=== PATIENT | female | born 1950 | race African-American/Black ===

== ENCOUNTER 2018-09-11 05:29 | Observation (INO) | payer MEDICARE ==
--- NOTE | 2018-09-11 08:21 | CT ---
PRELIMINARY REPORT/[facility]/EMERGENTY AFTER-HOURS PROCEDURE Addendum created by Dheeraj Blas MD on 09/11/2018 6:43 AM Central Time ([place] & [place]) THIS REPORT CONTA INS FINDINGS THAT MAY BE CRITICAL TO PATIENT CARE. The findings were verbally communicated via teleph one conference with Quinten Treviño at 6:43 AM [employer] on 09/11/2018. The findings were acknowledged and und erstood. Initial Report created on 09/11/2018 6:41 AM Central Time ([place] & [place]) CT Angiography Head With Intravenous Contrast CLINICAL HISTORY: 68 years old, female; Signs and symptoms; Headache; Additional info: Additional history obtained from ems, tfr records reviewed. F68 presents to ed as tfr for R/O of CVA. Ems reports negative stroke adloph t but that pt is leaning more to the right so doctor wanted to rule out CVA. Pt reports waking from s leep 1am with SX, went to bed around 10 pm baseline. Pt had some dizziness before going to ed. Pt lin t to the ed initially for pain in right rastafari area that was very quick, comes and goes, and some congestion. Pt denies dizziness currently. Pt has no pain and no complaints currently. Hx- no previou s strokes. TECHNIQUE: Axial computed tomographic angiography images of the head with intravenous contrast using CT angiogra phy protocol. MIP reconstructed images were created and reviewed. Coronal and sagittal reformatted images were created and reviewed. CONTRAST: 100 mL of ISOVUE administered intravenously. COMPARISON: No relevant prior studies available. FINDINGS: Right internal carotid artery: Atherosclerotic calcifications in the cavernous and supraclinoid segme nts of the right internal carotid artery resulting in mild stenosis. No hemodynamically significant s tenosis. No aneurysm. Right anterior cerebral artery: No significant stenosis. No occlusion. No aneurysm. Right middle cerebral artery: No significant stenosis. No occlusion. No aneurysm. Right posterior cerebral artery: No significant stenosis. No occlusion. No aneurysm. Right vertebral artery: No hemodynamically significant stenosis. No aneurysm. Left internal carotid artery: Atherosclerotic calcifications in the cavernous and supraclinoid segmen ts of the left internal carotid artery resulting in mild stenosis. No hemodynamically significant dot nosis. No aneurysm. Left anterior cerebral artery: No significant stenosis. No occlusion. No aneurysm. Left middle cerebral artery: No significant stenosis. No occlusion. No aneurysm. Left posterior cerebral artery: No significant stenosis. No occlusion. No aneurysm. Left vertebral artery: No hemodynamically significant stenosis. No aneurysm. Basilar artery: No aneurysm. No significant stenosis. No occlusion. Brain: No intracranial hemorrhage. No evidence of acute infarction. No mass effect or midline shift. IMPRESSION: No acute intracranial abnormality. No major intracranial arterial hemodynamically significant stenosis or aneurysm. CT Angiography Neck With Intravenous Contrast TECHNIQUE: Axial computed tomographic angiography images of the neck with intravenous contrast using CT angiogra phy protocol. MIP reconstructed images were created and reviewed. Coronal and sagittal reformatted images were created and reviewed. CONTRAST: 100 mL of ISOVUE administered intravenously. 100 mL of ISOVUE administered intravenously. COMPARISON: No relevant prior studies available. FINDINGS: VASCULATURE: Right common carotid artery: No significant stenosis. No dissection or occlusion. Right internal carotid artery: Mild stenosis of the proximal right internal carotid artery. No hemody namically significant stenosis, dissection, or occlusion. Right external carotid artery: No occlusion. Right vertebral artery: No significant stenosis. No dissection or occlusion. Left common carotid artery: No significant stenosis. No dissection or occlusion. Left internal carotid artery: Mild stenosis of the proximal left internal carotid artery. No hemodyna mically significant stenosis, dissection, or occlusion. Left external carotid artery: No occlusion. Left vertebral artery: No significant stenosis. No dissection or occlusion. NECK: Bones/joints: Degenerative changes in the spine. No acute fracture. Normal alignment. Soft tissues: Normal as visualized. No mass. Lung apices: Paraseptal and centrilobular emphysematous changes. CAROTID STENOSIS REFERENCE USING NASCET CRITERIA: % ICA stenosis = (1 - narrowest ICA diameter/diameter of distal cervical ICA) x 100. Mild - <50% stenosis. Moderate - 50-69% stenosis. Severe - 70-94% stenosis. Near occlusion - 95-99% stenosis. Occluded - 100% stenosis. IMPRESSION: No dissection, hemodynamically significant stenosis, or occlusion in the carotid or vertebral arterie s. Nonacute/incidental findings above. Thank you for allowing us to participate in the care of your patient. Dictated and Authenticated by: Dheeraj Blas MD 09/11/2018 6:41 AM Central Time ([place] & [place]) FINAL REPORT EMERGENT AFTER HOURS CTA OF THE HEAD AND NECK WITH CONTRAST: Technique: 1. Multiple contiguous axial images were obtained in a CTA of the neck with contrast. 3D sagittal and coronal MIP reformats were performed. 2. Multiple contiguous axial images were obtained in a CTA of the head with contrast. 3D sagittal and coronal MIP reformats were performed. FINDINGS/IMPRESSION: 1. I agree with the findings and impression given in the preliminary report by [facility] physician. No sig nificant stenosis of the carotid arteries in the neck. 2. No significant vascular intracranial abnormality. POS: [facility]
--- NOTE | 2018-09-11 08:30 | RAD ---
SINGLE VIEW CHEST: Date: 09/11/18 COMPARISON: 11/24/13. HISTORY: Dizziness and headache. FINDINGS: Single view of the chest shows a normal sized cardiomediastinal silhouette. There is no evidence of c onsolidation, mass, or pleural effusion. The bones are unremarkable. IMPRESSION: No evidence of acute cardiopulmonary disease. POS: [facility]
[2018-09-11] MEDS ORDERED: Iopamidol 370 76% 100 ML VIAL ONE (10:03)
--- NOTE | 2018-09-11 12:19 | MRI ---
MRI BRAIN WITHOUT CONTRAST: History: TIA vs. CVA. Dizziness. Comparison: None. Technique: Brain MRI is performed without intravenous gadolinium administration. Multisequential, mul tiplanar imaging was performed. FINDINGS: No hemorrhage on the axial gradient echo sequence. Calvarium has a normal T1 marrow signal intensity. Midline brain parenchymal structures are unremarka ble. Central arterial flow voids are maintained. Absent restricted diffusion. T2 and FLAIR white matter hyperintensity is likely due to chronic small vessel ischemic change. Adequate aeration of the sinuses and mastoid air cells. IMPRESSION: 1. Absent restricted diffusion. No acute infarct. POS: [facility]
[2018-09-11] MEDS ORDERED: Ondansetron ODT 4 MG TAB SL PRN (13:13)
[2018-09-11] MEDS ORDERED: Acetaminophen 325 MG TAB PO PRN (13:13)
[2018-09-11] MEDS ORDERED: Ondansetron PF 4 MG/2 ML Vial IVP PRN (13:13)
[2018-09-11] MEDS ORDERED: hydrALAZINE 20 MG/ML VIAL SLOW IVP PRN (13:31)
[2018-09-11] MEDS ORDERED: Losartan 25 MG TAB PO SCH (14:00)
[2018-09-11 14:43] LABS: Cardiac Risk 3.7 (Less than 4.5)
[2018-09-11 14:59] VITALS: BMI 40.5
[2018-09-11] MEDS: cefTRIAXone\\ROCEPHIN 1 GM in Sodium Chloride 0.9% 100 ML IVPB SCH (15:22)
--- NOTE | 2018-09-11 22:00 | HP ---
CODE STATUS: Full code. PRIMARY CARE PHYSICIAN: Dr. Maggie Godoy. CHIEF COMPLAINT: Headache and dizziness. HISTORY OF PRESENT ILLNESS: Ms. Hong is a pleasant 68-year-old female with past medical history of hypertension, who had presented to [facility] with a complaint of headache and weakness that started late last night. She states symptoms came on suddenly around 10:00 p.m., she had walked out to her kitchen to get a glass of water and she appeared quite dizzy and she became nauseous. She states symptoms lasted for several minutes, which were pretty concerning for the patient; therefore, she had asked her to drive her to the ER. Upon presentation, she had denied any further complaints, her symptoms of headache and dizziness had improved. Vital signs showed hypertension with a blood pressure of 172/92, which seemed to improve while in the ER to 146/87. She states that she takes losartan and nifedipine at home for her blood pressure. She had denied any further history of medical conditions at that time. She denies any heart disease, history of diabetes, history of stroke, migraines, or cancer. Her initial workup showed an elevated white count of 13.2 and CRP 1.71. Her urinalysis showed 3+ bacteria, small blood, and 4 to 6 wbc's with trace leukocyte esterase. She states she has a history of chronic UTIs, which she usually follows up with her primary care physician, Dr. Godoy, before. She reports an allergy to azithromycin and sulfa at this time. She also reports some frequency and urgency, however, denies any dysuria at this time. She denies fever or chills. She denies any chest pain, shortness of breath, or abdominal pain. She denies any nausea or vomiting at this time. CTA head and neck was unremarkable and showed no acute findings, chest x-ray showed no evidence of acute cardiopulmonary disease. MRI of brain was then ordered for further evaluation and showed absence of restrictive diffusion, showed no acute infarct, however, did show T2 and FLAIR white matter hyperintensity, which was likely secondary to chronic small-vessel ischemic changes. At this time, the patient will be admitted under observation for further workup of her symptoms. PAST MEDICAL HISTORY: Hypertension. FAMILY HISTORY: Positive for hypertension and diabetes. PAST SURGICAL HISTORY: Hysterectomy, left knee arthroscopic surgery, left Achilles tendon repair, and cholecystectomy. PSYCHIATRIC HISTORY: None. SOCIAL HISTORY: Denies any alcohol, tobacco, or drug use. KNOWN ALLERGIES: Azithromycin and sulfa drugs. CURRENT HOME MEDICATIONS: 1. Losartan 50 mg p.o. daily. 2. Nifedipine 30 mg p.o. b.i.d. REVIEW OF SYSTEMS: CONSTITUTIONAL: Denies any fever or chills. Denies any generalized weakness. Did report some dizziness and weakness along with headache last night, however, this has since resolved. CARDIOVASCULAR: Denies chest pain, palpitations, or murmur. RESPIRATORY: Denies any cough, shortness of breath, or sputum production. GASTROINTESTINAL: Denies any abdominal pain, nausea, vomiting, or diarrhea. GENITOURINARY: Does report some frequency and urgency, however, denies dysuria. Denies flank pain. NEUROLOGIC: Did report right-sided headache and dizziness last night, however, this has since resolved. Denies any lightheadedness or vision changes. Denies any change in gait. MUSCULOSKELETAL: Denies any weakness, swelling, or pain. PHYSICAL EXAMINATION: VITAL SIGNS: Blood pressure 146/87, pulse 70, respirations 18, temperature 98.5 , and O2 saturations 96% on room air. GENERAL: The patient is alert and oriented x3. No acute distress noted. HEAD: Atraumatic and normocephalic. EYES: Pupils round and reactive to light. Extraocular muscles intact. No nystagmus noted. ENT: Ear, nose, and throat clear. Tympanic membranes normal. Oropharynx without erythema. Uvula midline. Moist mucous membranes noted. NECK: Supple. Normal range of motion. Trachea midline. No tenderness. CARDIOVASCULAR: Positive S1 and S2. Regular rate and rhythm. No murmur. RESPIRATORY: Clear to auscultation bilaterally. No wheezes. No rhonchi. ABDOMEN: Obese, soft, and nontender. Bowel sounds present. Mild suprapubic tenderness noted. No CVA tenderness. No rebound. No guarding. MUSCULOSKELETAL: Moves all extremities equally. Strength 5+ bilaterally in upper and lower extremities. Pedal and radial pulses 2+ bilaterally. No edema noted. NEUROLOGIC: Cranial nerves 2 through 12 intact. No focal deficits noted. No motor deficits noted. Speech normal. SKIN: Warm, dry, and intact. No rash. No lesions noted. PSYCHIATRIC: Normal mood and affect. LABORATORY DATA: WBC 13.2, RBC 5.75, hemoglobin 14.6, platelets 316. Sodium 142, potassium 4.0, BUN 16, creatinine 0.87. Estimated GFR 78, glucose 112, alkaline phosphatase 123. C-reactive protein 1.71. Urinalysis showed small blood, trace leukocyte esterase, 4 to 6 wbc's, and 3+ bacteria. DIAGNOSTIC IMAGING: Chest x-ray showed no evidence of acute cardiopulmonary disease. CTA head and neck was unremarkable and showed no significant stenosis or occlusion, no acute findings noted. MRI of brain showed no acute infarct, however, did show T2 and FLAIR white matter hypointensity, likely secondary to chronic small-vessel ischemic changes. ASSESSMENT AND PLAN: 1. Urinary tract infection, check urine culture. Start the patient on IV ceftriaxone for antibiotic with further changes pending culture results. 2. Possible transient ischemic attack. So far, workup unremarkable, MRI of the brain showed chronic small-vessel ischemic changes, check echocardiogram for cardiogenic possibilities. Start the patient on aspirin 81 mg daily. Check lipid panel and likely start on statin therapy. 3. Hypertension. Continue the patient's home medications including losartan and nifedipine, monitor vital signs closely. Add IV hydralazine p.r.n. for systolic blood pressure greater than 170. 4. Gastrointestinal prophylaxis with Pepcid twice daily. 5. Deep venous thrombosis prophylaxis with Lovenox daily. Disposition and further medical management pending clinical findings and the patient's workup. Job ID: [id number] [facility]
[2018-09-11] MEDS: NIFEdipine XL 30 MG TAB PO SCH (22:21)
[2018-09-11] MEDS: Famotidine 20 MG TAB PO SCH (22:21)
[2018-09-12 06:04] LABS: #Eosinphils 0.1 thou/uL (0.0-0.7); #Lymphocytes 2.6 thou/uL (1.20-3.40); #Monocytes 0.7 thou/uL (0.11-0.59); #Neutrophils 5.4 thou/uL (1.40-6.50); %Basophils 0.4 % (0.0-1.0); %Eosinophils 1.6 % (0.0-10.0); %Lymphocytes 29.2 % (21.0-51.0); %Monocytes 7.4 % (0.0-10.0); %Neutrophils 61.4 % (42.0-75.0); Hemoglobin 13.5 g/dL (12.0-16.0); Mean Corpuscular HGB CONC 33.4 g/dL (32.0-36.0); Mean Corpuscular Hemoglobin 26.3 pg (27.0-31.0); Mean Corpuscular Volume 78.8 fL (78.0-98.0); Mean Platelet Volume 9.3 fL (7.4-10.4); Platelet Count 267 thou/uL (130-400); Red Blood Cell (RBC) Count 5.15 mill/uL (4.20-5.40); White Blood Cell (WBC) Count 8.8 thou/uL (4.8-10.8)
[2018-09-12 06:12] LABS: Anion Gap 12 mmol/L (10-20); BUN (Urea Nitrogen) 15 mg/dL (9.8-20.1); Calc. Creatinine Clearance 120 mL/min (70-130); Calcium 9.2 mg/dL (7.8-10.44); Carbon Dioxide 26 mmol/L (23-31); Chloride 106 mmol/L (98-107); Estimated GFR-MDRD 83; Glucose 88 mg/dL (80-115); Potassium 3.9 mmol/L (3.5-5.1); Sodium 140 mmol/L (136-145)
[2018-09-12] MEDS ORDERED: Aspirin 81 mg Enteric Coated Tablet PO SCH (09:00)
[2018-09-12] MEDS ORDERED: Enoxaparin Sodium 40 MG/0.4 ML SYRINGE SC SCH (09:00)
[2018-09-12] MEDS ORDERED: Losartan 25 MG TAB PO SCH (09:00)
[2018-09-12] MEDS: NIFEdipine XL 30 MG TAB PO SCH ×2 (09:49→18:12)
[2018-09-12] MEDS: Famotidine 20 MG TAB PO SCH (09:49)
--- NOTE | 2018-09-12 15:28 | PDOC.EVN ---
Event Note - Event Note Event Note: patient interviewed, brief exam. agree with Amy Huang management and plan
[2018-09-12] MEDS: cefTRIAXone\\ROCEPHIN 1 GM in Sodium Chloride 0.9% 100 ML IVPB SCH (15:44)
[2018-09-12 15:57] VITALS: BP 161/81; TEMP 98.2
[2018-09-12] MEDS ORDERED: Atorvastatin Calcium 20 MG TAB PO SCH (21:00)
== END 2018-09-12 18:19 | disposition home or self-care (01) ==
LOC: ERS 05:29 → ERHOLD 06:30 → 2SE 13:03
PROVIDERS: ADMIT Internal Medicine; ATTEND Internal Medicine
DX: N39.0 Urinary tract infection, site not specified (principal); I10 Essential (primary) hypertension; Z88.2 Allergy status to sulfonamides; Z88.1 Allergy status to other antibiotic agents; Z90.710 Acquired absence of both cervix and uterus; Z90.49 Acquired absence of other specified parts of digestive tract; Z79.899 Other long term (current) drug therapy; Z79.82 Long term (current) use of aspirin; Z98.890 Other specified postprocedural states
CPT/HCPCS: 70496; 70498; 70551; 71045; 80048; 80061; 85025; 87086; 93306; 96372; 96374; 96376; 99285; G0378 ×2; 36415; J0696; J1650; J7050

== ENCOUNTER 2018-12-10 14:18 | Outpatient (CLI) | payer MEDICARE ==
--- NOTE | 2018-12-10 17:38 | MRI ---
MRI LUMBAR SPINE NONCONTRAST: INDICATIONS: Low back pain, radiating to the left lower extremity. FINDINGS: There is no acute marrow edema or compression fracture. Multilevel endplate osteophytosis is present . There is prominent disk space narrowing at L4-L5. No significant subluxation. The conus medullar is demonstrates normal morphology, terminating at the L1 level. No significant pathology of the visu alized retroperitoneum. L5-S1: No significant central canal or neural foraminal stenosis. L4-L5: There is evidence of prior bilateral laminectomy. Broad-based disk osteophyte effaces the ve ntral aspect of the thecal sac. There is moderate bilateral neural foraminal stenosis, more prominen t on the left. There is potential for impingement of the traversing left L5 nerve root. Bilateral m oderate facet degenerative hypertrophy is present. L3-L4: Mild to moderate central canal stenosis is present on the basis of broad-based disk osteophyt e, redundancy of ligamentum flavum, and bilateral moderate facet hypertrophy. There is moderate righ t neural foraminal narrowing. Mild left neural foraminal narrowing is present. L2-L3: There is a broad-based disk osteophyte with mild effacement of the ventral thecal sac. Mild bilateral neural foraminal narrowing is present. L1-L2: Mild effacement of the ventral thecal sac due to broad-based disk osteophyte. There is mild crowding of the traversing left L2 nerve root. There is mild left neural foraminal narrowing. The r ight neural foramen is patent. 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 POS: [facility]
== END 2018-12-10 14:19 | disposition home or self-care (01) ==
LOC: SCSMRI 14:18
PROVIDERS: ATTEND Psychiatry & Neurology Neurology
DX: M54.30 Sciatica, unspecified side (principal); M47.816 Spondylosis without myelopathy or radiculopathy, lumbar region; Z98.890 Other specified postprocedural states
CPT/HCPCS: 72148

== ENCOUNTER 2019-03-28 15:30 | Outpatient (CLI) | payer MEDICARE ==
[2019-03-28 16:20] LABS: #Basophils 0.1 thou/uL (0.0-0.2); #Eosinphils 0.2 thou/uL (0.0-0.7); #Lymphocytes 3.1 thou/uL (1.20-3.40); #Monocytes 0.9 thou/uL (0.11-0.59); #Neutrophils 8.9 thou/uL (1.40-6.50); %Basophils 0.4 % (0.0-1.0); %Eosinophils 1.5 % (0.0-10.0); %Lymphocytes 23.5 % (21.0-51.0); %Monocytes 6.5 % (0.0-10.0); %Neutrophils 68.1 % (42.0-75.0); Hemoglobin 14.2 g/dL (12.0-16.0); Mean Corpuscular HGB CONC 33.1 g/dL (32.0-36.0); Mean Corpuscular Hemoglobin 26.3 pg (27.0-31.0); Mean Corpuscular Volume 79.5 fL (78.0-98.0); Mean Platelet Volume 9.3 fL (7.4-10.4); Platelet Count 269 thou/uL (130-400); RBC Distribution Width 13.9 % (11.5-14.5); Red Blood Cell (RBC) Count 5.38 mill/uL (4.20-5.40); White Blood Cell (WBC) Count 13.1 thou/uL (4.8-10.8)
[2019-03-28 16:25] LABS: INR-International Normal Ratio 0.9; PTT 32.3 SEC (22.9-36.1); Prothrombin Time 12.5 SEC (12.0-14.7)
[2019-03-28 16:40] LABS: ALT (SGPT) 14 U/L (8-55); AST (SGOT) 12 U/L (5-34); Albumin 4.4 g/dL (3.4-4.8); Alkaline Phosphatase 153 U/L (40-150); Anion Gap 15 mmol/L (10-20); BUN (Urea Nitrogen) 13 mg/dL (9.8-20.1); Bilirubin, Total 0.3 mg/dL (0.2-1.2); Calc. Creatinine Clearance 0 mL/min (70-130); Calcium 9.3 mg/dL (7.8-10.44); Carbon Dioxide 24 mmol/L (23-31); Chloride 106 mmol/L (98-107); Estimated GFR-MDRD 67; Globulin 2.8 g/dL (2.4-3.5); Glucose 77 mg/dL (80-115); Potassium 3.9 mmol/L (3.5-5.1); Protein, Total 7.2 g/dL (6.0-8.3); Sodium 141 mmol/L (136-145)
== END 2019-03-28 15:31 | disposition home or self-care (01) ==
LOC: LABBT 15:30
PROVIDERS: ATTEND Internal Medicine Cardiovascular Disease
DX: Z01.812 Encounter for preprocedural laboratory examination (principal); R94.30 Abnormal result of cardiovascular function study, unspecified
CPT/HCPCS: 80053; 85025; 85610; 85730

== ENCOUNTER 2019-04-02 06:12 | Day surgery (SDC) | payer MEDICARE ==
[2019-03-28 15:49] VITALS: BMI 41.1
[2019-04-02] MEDS ORDERED: Lidocaine 1% (PF) 30 ML VIAL ONE ×2 (06:25→06:45)
[2019-04-02] MEDS ORDERED: Heparin 0 ML ONE (06:25)
[2019-04-02] MEDS ORDERED: Iopamidol 370 76% 100 ML VIAL ONE (08:03)
[2019-04-02] MEDS ORDERED: Fentanyl 100 MCG/2 ML VIAL ONE (08:28)
[2019-04-02] MEDS ORDERED: Midazolam HCl 2 mg/2 ml Vial ONE (08:28)
[2019-04-02] MEDS ORDERED: Nitroglycerin 100MG/250ML BOT 0 ML ONE (08:45)
--- NOTE | 2019-04-02 14:31 | DIS ---
DATE OF ADMISSION: 04/02/2019 DATE OF DISCHARGE: 04/02/2019 HOSPITAL COURSE: Ms. Hong underwent cardiac catheterization today revealed the followin. Left main, some calcium, but no obstructive plaque. 2. LAD: Proximally calcium, but no obstructive plaque. 3. 30% LAD lesion after diagonal branch. 4. 50% very distal lesion in the LAD. 5. Circumflex 50% distal lesion. No proximal or mid occlusions. 6. Right coronary extremely tortuous, moderately calcified vessel with a 60% mid lesion. 7. Ejection fraction 60%. Recommended followin. Increase losartan to 50 mg twice a day. 2. Change from Lipitor to Crestor 20 mg a day to further lower cholesterol. 3. If she had intractable symptoms, consideration for intervention in the right coronary could be done, but there would be a moderate degree of risk with extremely tortuous vessel with some calcium. It should be treated medically first. Job ID: [id number]
== END 2019-04-02 14:40 | disposition home or self-care (01) ==
LOC: CCL 06:12
PROVIDERS: ATTEND Internal Medicine Cardiovascular Disease
PROC: 4A023N7 Measurement of Cardiac Sampling and Pressure, Left Heart, Percutaneous Approach (ICD-10-PCS; principal; 2019-04-02)
PROC: B2111ZZ Fluoroscopy of Multiple Coronary Arteries using Low Osmolar Contrast (ICD-10-PCS; 2019-04-02)
PROC: B2151ZZ Fluoroscopy of Left Heart using Low Osmolar Contrast (ICD-10-PCS; 2019-04-02)
DX: I25.10 Atherosclerotic heart disease of native coronary artery without angina pectoris (principal); I12.9 Hypertensive chronic kidney disease with stage 1 through stage 4 chronic kidney disease, or unspecified chronic kidney disease; N18.9 Chronic kidney disease, unspecified; F41.9 Anxiety disorder, unspecified; E78.5 Hyperlipidemia, unspecified; M19.90 Unspecified osteoarthritis, unspecified site; E66.01 Morbid (severe) obesity due to excess calories; F17.210 Nicotine dependence, cigarettes, uncomplicated; Z88.1 Allergy status to other antibiotic agents; Z88.2 Allergy status to sulfonamides; Z68.41 Body mass index [BMI] 40.0-44.9, adult; Z79.82 Long term (current) use of aspirin; Z79.899 Other long term (current) drug therapy
CPT/HCPCS: 76942; 93458; 99152; C1769; J1644; J2001; J2250; J3010; Q9967

== ENCOUNTER 2021-10-19 02:12 | Inpatient (IN) | payer MEDICARE ==
[2021-10-19] MEDS ORDERED: Acetaminophen 325 MG TAB PO PRN (03:17)
[2021-10-19] MEDS ORDERED: Ondansetron PF 4 MG/2 ML Vial IVP PRN (03:17)
[2021-10-19] MEDS ORDERED: Acetaminophen 650 MG Suppository PR PRN (03:17)
[2021-10-19] MEDS ORDERED: Ondansetron ODT 4 MG TAB PO PRN (03:17)
[2021-10-19] MEDS ORDERED: Pantoprazole 80 MG in Sodium Chloride 0.9% 100 ML IVPB SCH (03:30)
[2021-10-19 03:47] LABS: #Lymphocytes 1.6 thou/uL (1.20-3.40); #Monocytes 0.8 thou/uL (0.11-0.59); #Neutrophils 15.4 thou/uL (1.40-6.50); %Basophils 0.2 % (0.0-1.0); %Eosinophils 0.1 % (0.0-10.0); %Monocytes 4.5 % (0.0-10.0); %Neutrophils 86.2 % (42.0-75.0); Hemoglobin 9.2 g/dL (12.0-16.0); Mean Corpuscular HGB CONC 32.3 g/dL (32.0-36.0); Mean Corpuscular Hemoglobin 26.6 pg (27.0-31.0); Mean Corpuscular Volume 82.2 fL (78.0-98.0); Mean Platelet Volume 9.2 fL (7.4-10.4); Platelet Count 197 thou/uL (130-400); RBC Distribution Width 13.9 % (11.5-14.5); Red Blood Cell (RBC) Count 3.46 mill/uL (4.20-5.40); White Blood Cell (WBC) Count 17.8 thou/uL (4.8-10.8)
[2021-10-19 04:07] LABS: Anion Gap 15 mmol/L (10-20); BUN (Urea Nitrogen) 29 mg/dL (9.8-20.1); Calc. Creatinine Clearance 0 mL/min (70-130); Calcium 7.6 mg/dL (7.8-10.44); Carbon Dioxide 17 mmol/L (23-31); Chloride 114 mmol/L (98-107); Glucose 139 mg/dL (83-110); Potassium 4.1 mmol/L (3.5-5.1); Sodium 142 mmol/L (136-145)
[2021-10-19 04:58] VITALS: BMI 43.0
[2021-10-19] MEDS ORDERED: GoLYTELY 4,000 ml Bottle PO SCH ×2 (07:30→20:00)
[2021-10-19] MEDS: Sodium Chloride 0.9% 1,000 ML IV SCH ×2 (08:00→15:45)
[2021-10-19 08:02] LABS: Hemoglobin 8.6 g/dL (12.0-16.0)
[2021-10-19] MEDS ORDERED: Pantoprazole 80 MG, Admixture Fee 1 EACH in Sodium Chloride 0.9% 100 ML IVPB SCH (09:45)
[2021-10-19] MEDS ORDERED: Lidocaine 1% PF 5 ML VIAL ONE (13:13)
[2021-10-19] MEDS ORDERED: PROPOFOL 200 MG/20 ML VIAL ONE (13:13)
[2021-10-19 17:35] LABS: Hemoglobin 9.1 g/dL (12.0-16.0)
[2021-10-20 03:41] LABS: #Eosinphils 0.2 thou/uL (0.0-0.7); #Lymphocytes 3.1 thou/uL (1.20-3.40); #Monocytes 1.1 thou/uL (0.11-0.59); #Neutrophils 8.7 thou/uL (1.40-6.50); %Basophils 0.4 % (0.0-1.0); %Eosinophils 1.7 % (0.0-10.0); %Lymphocytes 23.5 % (21.0-51.0); %Monocytes 8.6 % (0.0-10.0); %Neutrophils 65.9 % (42.0-75.0); Hemoglobin 7.8 g/dL (12.0-16.0); Mean Corpuscular Hemoglobin 28.3 pg (27.0-31.0); Mean Corpuscular Volume 83.1 fL (78.0-98.0); Mean Platelet Volume 8.5 fL (7.4-10.4); Platelet Count 145 thou/uL (130-400); RBC Distribution Width 14.2 % (11.5-14.5); Red Blood Cell (RBC) Count 2.76 mill/uL (4.20-5.40); White Blood Cell (WBC) Count 13.2 thou/uL (4.8-10.8)
[2021-10-20 03:47] LABS: Anion Gap 11 mmol/L (10-20); BUN (Urea Nitrogen) 17 mg/dL (9.8-20.1); Calc. Creatinine Clearance 133 mL/min (70-130); Calcium 7.5 mg/dL (7.8-10.44); Carbon Dioxide 21 mmol/L (23-31); Chloride 114 mmol/L (98-107); Glucose 100 mg/dL (83-110); Potassium 3.4 mmol/L (3.5-5.1); Sodium 143 mmol/L (136-145)
[2021-10-20] MEDS: Sodium Chloride 0.9% 1,000 ML IV SCH ×2 (04:41→23:29)
[2021-10-20] MEDS ORDERED: PROPOFOL 200 MG/20 ML VIAL ONE (08:05)
[2021-10-21 05:54] LABS: #Eosinphils 0.2 thou/uL (0.0-0.7); #Lymphocytes 2.9 thou/uL (1.20-3.40); #Monocytes 0.8 thou/uL (0.11-0.59); #Neutrophils 8.6 thou/uL (1.40-6.50); %Basophils 0.2 % (0.0-1.0); %Eosinophils 1.4 % (0.0-10.0); %Lymphocytes 23.4 % (21.0-51.0); %Monocytes 6.4 % (0.0-10.0); %Neutrophils 68.6 % (42.0-75.0); Hemoglobin 7.6 g/dL (12.0-16.0); Mean Corpuscular HGB CONC 33.5 g/dL (32.0-36.0); Mean Corpuscular Hemoglobin 28.3 pg (27.0-31.0); Mean Corpuscular Volume 84.4 fL (78.0-98.0); Mean Platelet Volume 8.4 fL (7.4-10.4); Platelet Count 162 thou/uL (130-400); RBC Distribution Width 14.5 % (11.5-14.5); Red Blood Cell (RBC) Count 2.67 mill/uL (4.20-5.40); White Blood Cell (WBC) Count 12.6 thou/uL (4.8-10.8)
[2021-10-21 06:10] LABS: Anion Gap 12 mmol/L (10-20); BUN (Urea Nitrogen) 9 mg/dL (9.8-20.1); Calc. Creatinine Clearance 142 mL/min (70-130); Calcium 7.9 mg/dL (7.8-10.44); Carbon Dioxide 20 mmol/L (23-31); Chloride 113 mmol/L (98-107); Glucose 90 mg/dL (83-110); Potassium 3.4 mmol/L (3.5-5.1); Sodium 142 mmol/L (136-145)
[2021-10-21] MEDS ORDERED: Iron Polysaccharides Complex 150 MG CAP PO SCH (08:00)
[2021-10-21] MEDS ORDERED: Losartan 25 MG TAB PO SCH (09:00)
[2021-10-21] MEDS ORDERED: Ascorbic Acid 500 mg Chewable Tablet PO SCH (09:00)
[2021-10-21] MEDS: Sodium Chloride 0.9% 1,000 ML IV SCH (12:50)
[2021-10-21 17:01] VITALS: BP 160/94; TEMP 98
[2021-10-21] MEDS ORDERED: Rosuvastatin 20 MG TAB PO SCH (21:00)
== END 2021-10-21 17:37 | disposition home or self-care (01) | DRG 377 ==
LOC: ERS 02:12 → CCU 03:11 → IMCU/EMU 10-20 02:06 → T4-A 10-20 21:09
PROVIDERS: ADMIT Student in an Organized Health Care Education/Training Program; ATTEND Internal Medicine
PROC: 0DJ08ZZ Inspection of Upper Intestinal Tract, Via Natural or Artificial Opening Endoscopic (ICD-10-PCS; principal; 2021-10-19)
PROC: 0DJD8ZZ Inspection of Lower Intestinal Tract, Via Natural or Artificial Opening Endoscopic (ICD-10-PCS; 2021-10-19)
PROC: 30233N1 Transfusion of Nonautologous Red Blood Cells into Peripheral Vein, Percutaneous Approach (ICD-10-PCS; 2021-10-19)
PROC: 0DJD8ZZ Inspection of Lower Intestinal Tract, Via Natural or Artificial Opening Endoscopic (ICD-10-PCS; 2021-10-20)
DX: K57.31 Diverticulosis of large intestine without perforation or abscess with bleeding (principal); R57.8 Other shock; Z68.1 Body mass index [BMI] 19.9 or less, adult; N17.9 Acute kidney failure, unspecified; D62 Acute posthemorrhagic anemia; E78.5 Hyperlipidemia, unspecified; F17.210 Nicotine dependence, cigarettes, uncomplicated; Z20.822 Contact with and (suspected) exposure to COVID-19; E66.9 Obesity, unspecified; I10 Essential (primary) hypertension; Z86.73 Personal history of transient ischemic attack (TIA), and cerebral infarction without residual deficits; Z90.49 Acquired absence of other specified parts of digestive tract; Z90.710 Acquired absence of both cervix and uterus; Z88.1 Allergy status to other antibiotic agents; Z88.2 Allergy status to sulfonamides; Z88.8 Allergy status to other drugs, medicaments and biological substances; Z79.82 Long term (current) use of aspirin; Z79.899 Other long term (current) drug therapy
CPT/HCPCS: 36415; 80048; 85025; 86850; 86900; 86901; C9113; J2704; J3490; J7050; P9016

== ENCOUNTER 2022-03-10 13:12 | Outpatient (CLI) | payer MEDICARE ==
[2022-03-10 14:08] LABS: #Basophils 0.1 10x3/uL (0.0-0.2); #Eosinphils 0.1 10x3/uL (0.0-0.5); #Monocytes 0.9 10x3/uL (0.0-1.1); #Neutrophils 8.9 10x3/uL (1.5-8.4); %Basophils 0.4 % (0.0-2.0); %Eosinophils 0.6 % (0.0-6.0); %Lymphocytes 19.9 % (18.0-47.0); %Monocytes 7.5 % (0.0-10.0); %Neutrophils 71.3 % (40.0-75.0); Hemoglobin 13.7 g/dL (12.0-15.5); Mean Corpuscular HGB CONC 32.5 g/dL (32.0-36.0); Mean Corpuscular Hemoglobin 23.7 pg (27.0-33.0); Mean Platelet Volume 10.3 fl (7.4-10.4); Platelet Count 316 10x3/uL (150-450); RBC Distribution Width 18.1 % (11.5-14.5); Red Blood Cell (RBC) Count 5.78 10x6/uL (3.90-5.03); White Blood Cell (WBC) Count 12.4 10x3/uL (3.5-10.5)
[2022-03-10 14:12] LABS: INR-International Normal Ratio 0.9; Prothrombin Time 9.9 sec (9.5-12.1)
[2022-03-10 14:20] LABS: Anion Gap 16 mmol/L (10-20); BUN (Urea Nitrogen) 17 mg/dL (9.8-20.1); Calc. Creatinine Clearance 0 mL/min (70-130); Calcium 9.6 mg/dL (7.8-10.44); Carbon Dioxide 27 mmol/L (23-31); Chloride 102 mmol/L (98-107); Glucose 60 mg/dL (83-110); Potassium 3.6 mmol/L (3.5-5.1); Sodium 141 mmol/L (136-145)
== END 2022-03-10 13:13 | disposition home or self-care (01) ==
LOC: LABBT 13:12
PROVIDERS: ATTEND Orthopaedic Surgery
DX: Z01.818 Encounter for other preprocedural examination (principal); M17.12 Unilateral primary osteoarthritis, left knee; Z20.822 Contact with and (suspected) exposure to COVID-19
CPT/HCPCS: 80048; 85025; 85610; 87081; 93005; U0003; U0005; 93010

== ENCOUNTER 2022-03-15 08:31 | Observation (INO) | payer MEDICARE ==
[2022-03-15] MEDS ORDERED: Tranexamic Acid 1,000 MG/10 ML VIAL ONE (09:02)
[2022-03-15] MEDS ORDERED: Sodium Chloride 0.9% 100 ML ONE ×3 (09:02→17:59)
[2022-03-15] MEDS ORDERED: VANCOMYCIN 2 GRAM/500 ML BAG 2 GM in Premix Bag 1 BAG IVPB SCH (09:15)
[2022-03-15] MEDS ORDERED: Fentanyl 100 MCG/2 ML VIAL ONE (10:21)
[2022-03-15] MEDS ORDERED: Midazolam HCl 2 mg/2 ml Vial ONE (10:21)
[2022-03-15] MEDS ORDERED: Acetaminophen 325 MG TAB PO PRN (10:52)
[2022-03-15] MEDS ORDERED: Promethazine HCl 25 MG/ML VIAL IM PRN ×2 (10:52→11:15)
[2022-03-15] MEDS ORDERED: Zolpidem Tartrate 5 MG TAB PO PRN ×2 (10:52→11:15)
[2022-03-15] MEDS ORDERED: diphenhydrAMINE 25 MG CAP PO PRN (10:52)
[2022-03-15] MEDS ORDERED: Ondansetron PF 4 MG/2 ML Vial IVP PRN ×2 (10:52→11:15)
[2022-03-15] MEDS ORDERED: Fentanyl 100 MCG/2 ML VIAL SLOW IVP PRN ×2 (10:52)
[2022-03-15] MEDS ORDERED: oxyCODONE/Acetaminophen 5 mg/325 mg Tablet PO PRN (10:54)
[2022-03-15] MEDS ORDERED: Fentanyl 100 MCG/2 ML VIAL IV PRN (11:02)
[2022-03-15] MEDS ORDERED: Bupivacaine PF 0.5% 30 ML VIAL ONE (11:05)
[2022-03-15] MEDS ORDERED: CEFAZOLIN 2 GM VIAL ONE (11:08)
[2022-03-15] MEDS ORDERED: Ropivacaine HCl/PF 250 ML in Premix Bag 1 BAG NERVE BLCK SCH (11:15)
[2022-03-15] MEDS ORDERED: traMADol HCl 50 MG TAB PO PRN ×4 (11:15→19:45)
[2022-03-15] MEDS ORDERED: HYDROcodone/Acetaminophen 10/325 mg Tablet PO PRN ×3 (11:15→19:45)
[2022-03-15] MEDS ORDERED: Dexamethasone 20 MG/5 ML VIAL ONE (11:16)
[2022-03-15] MEDS ORDERED: Ondansetron PF 4 MG/2 ML Vial ONE (11:16)
[2022-03-15] MEDS ORDERED: Bupivacaine HCl 0.5%/Epinephrine 1:200,000/PF 30 ml Vial ONE (11:16)
[2022-03-15] MEDS ORDERED: PROPOFOL 200 MG/20 ML VIAL ONE (11:16)
[2022-03-15] MEDS ORDERED: Ketorolac Tromethamine 30 MG/ML VIAL ONE ×2 (11:16→17:48)
[2022-03-15] MEDS ORDERED: CEFAZOLIN 2 GM in Sodium Chloride 0.9% 100 ML IVPB SCH (14:00)
[2022-03-15] MEDS: Sodium Chloride 0.9% 1,000 ML IV SCH ×2 (15:30→21:39)
[2022-03-15] MEDS ORDERED: CEFAZOLIN 1 GM VIAL ONE (17:50)
[2022-03-15] MEDS: Ketorolac Tromethamine 30 MG/ML VIAL IVP SCH ×3 (18:06→23:58)
[2022-03-15] MEDS ORDERED: Non-Formulary Item 1 EACH (Losartan Potassium [Cozaar] 50 MG Tab) PO SCH (21:00)
[2022-03-15 21:28] VITALS: BMI 42.4
[2022-03-15] MEDS: Ferrous Gluconate 324 MG TAB PO SCH (21:32)
[2022-03-15] MEDS: Senokot S 8.6-50 MG TAB PO SCH (21:32)
[2022-03-15] MEDS: NIFEdipine XL 30 MG TAB PO SCH (21:42)
[2022-03-15] MEDS: Losartan 25 MG TAB PO SCH (21:42)
[2022-03-15] MEDS: Aspirin 81 mg Enteric Coated Tablet PO SCH (21:42)
[2022-03-15] MEDS: CEFAZOLIN 2 GM in Sodium Chloride 0.9% 100 ML IVPB SCH (23:57)
[2022-03-16] MEDS: Ketorolac Tromethamine 30 MG/ML VIAL IVP SCH ×3 (05:33→17:40)
[2022-03-16 06:06] LABS: Hemoglobin 12.2 g/dL (12.0-16.0); Mean Corpuscular HGB CONC 32.8 g/dL (32.0-36.0); Mean Corpuscular Hemoglobin 25.3 pg (27.0-31.0); Mean Corpuscular Volume 77.1 fL (78.0-98.0); Mean Platelet Volume 11.1 fL (7.4-10.4); Platelet Count 241 thou/uL (130-400); RBC Distribution Width 16.2 % (11.5-14.5); Red Blood Cell (RBC) Count 4.84 mill/uL (4.20-5.40); White Blood Cell (WBC) Count 13.3 thou/uL (4.8-10.8)
[2022-03-16] MEDS: Ferrous Gluconate 324 MG TAB PO SCH ×2 (08:11→20:51)
[2022-03-16] MEDS: Ascorbic Acid 500 mg Chewable Tablet PO SCH (08:11)
[2022-03-16] MEDS: Multivitamin W/ Minerals 1 TAB PO SCH (08:11)
[2022-03-16] MEDS: CEFAZOLIN 2 GM in Sodium Chloride 0.9% 100 ML IVPB SCH (08:11)
[2022-03-16] MEDS: Aspirin 81 mg Enteric Coated Tablet PO SCH ×2 (08:11→20:52)
[2022-03-16] MEDS: NIFEdipine XL 30 MG TAB PO SCH ×2 (08:12→20:53)
[2022-03-16] MEDS: Rosuvastatin 20 MG TAB PO SCH (08:13)
[2022-03-16] MEDS: Senokot S 8.6-50 MG TAB PO SCH ×2 (08:13→20:52)
[2022-03-16] MEDS: Losartan 25 MG TAB PO SCH ×2 (08:13→20:52)
[2022-03-16] MEDS ORDERED: Non-Formulary Item 1 EACH (Ascorbate Calcium [Vitamin C] 500 MG Tablet) PO SCH (09:00)
[2022-03-16] MEDS: Sodium Chloride 0.9% 1,000 ML IV SCH ×2 (12:24→17:04)
[2022-03-16] MEDS: HYDROcodone/Acetaminophen 10/325 mg Tablet PO PRN (19:31)
[2022-03-17] MEDS: Ketorolac Tromethamine 30 MG/ML VIAL IVP SCH ×2 (00:28→05:25)
[2022-03-17] MEDS: Sodium Chloride 0.9% 1,000 ML IV SCH ×2 (01:36→16:59)
[2022-03-17] MEDS: NIFEdipine XL 30 MG TAB PO SCH (09:38)
[2022-03-17] MEDS: Senokot S 8.6-50 MG TAB PO SCH (09:38)
[2022-03-17] MEDS: Rosuvastatin 20 MG TAB PO SCH (09:38)
[2022-03-17] MEDS: Losartan 25 MG TAB PO SCH (09:38)
[2022-03-17] MEDS: Aspirin 81 mg Enteric Coated Tablet PO SCH (09:38)
[2022-03-17] MEDS: Ferrous Gluconate 324 MG TAB PO SCH (09:38)
[2022-03-17] MEDS: Ascorbic Acid 500 mg Chewable Tablet PO SCH (09:38)
[2022-03-17] MEDS: HYDROcodone/Acetaminophen 10/325 mg Tablet PO PRN (09:39)
[2022-03-17] MEDS: Multivitamin W/ Minerals 1 TAB PO SCH (09:39)
[2022-03-17 12:14] VITALS: BP 107/71; TEMP 97.9
[2022-03-17] MEDS ORDERED: Cephalexin 250 MG CAP PO SCH (21:00)
== END 2022-03-17 16:05 | disposition home or self-care (01) ==
LOC: SDC 08:31 → SURG B 19:02 → INTOOBSV 03-16 12:51 → OBSVTOIN 03-16 12:51
PROVIDERS: ADMIT Orthopaedic Surgery; ATTEND Orthopaedic Surgery
PROC: 0SRD0J9 Replacement of Left Knee Joint with Synthetic Substitute, Cemented, Open Approach (ICD-10-PCS; principal; 2022-03-15)
PROC: 8E0YXBZ Computer Assisted Procedure of Lower Extremity (ICD-10-PCS; 2022-03-15)
PROC: 3E0T3BZ Introduction of Anesthetic Agent into Peripheral Nerves and Plexi, Percutaneous Approach (ICD-10-PCS; 2022-03-15)
DX: M17.0 Bilateral primary osteoarthritis of knee (principal); F17.200 Nicotine dependence, unspecified, uncomplicated; I10 Essential (primary) hypertension; K21.9 Gastro-esophageal reflux disease without esophagitis; E78.5 Hyperlipidemia, unspecified; Z79.82 Long term (current) use of aspirin; Z79.899 Other long term (current) drug therapy; Z88.1 Allergy status to other antibiotic agents; Z88.2 Allergy status to sulfonamides; Z88.5 Allergy status to narcotic agent
CPT/HCPCS: 20985; 27447; 64448; 73560; 85027; 97110 ×3; 97116 ×2; 97139 ×2; 97530; C1713; C1776; J3370; 36415; 96374; 96375; 96376; G0378; J0690; J1100; J1885; J2250; J2405; J2704; J2795; J3010; J3490; J7050; S0020